=== PATIENT | female | born 1995 | race Caucasian/White ===

== ENCOUNTER 2023-10-26 18:06 | Emergency (ER) | payer MEDICAID ==
[~2023-10-26] VITALS: Ht 160 cm; Wt 45.5 kg
[2023-10-26] MEDS ORDERED: TRIAMCINOLONE A15 G2 TP (21:12)
[2023-10-26 21:59] VITALS: BP 140/78; PULSE 86; TEMP 98.1
[2023-10-26] MEDS ORDERED: MEDROL 4MG DOSPA4 MG PO (22:00)
== END 2023-10-26 21:59 | disposition home or self-care (01) ==
LOC: COL.ER 18:06
DX: R21 Rash and other nonspecific skin eruption (principal)